=== PATIENT | male | born 2000 | race Caucasian/White ===

== ENCOUNTER 2018-03-02 12:16 | Emergency (ER) | payer MEDICAID ==
[~2018-03-02] VITALS: Ht 165.1 cm; Wt 62.1 kg
[2018-03-02 12:32] VITALS: BP 124/70; Ht 165.1 cm; Wt 62.1 kg
[2018-03-03 09:49] LABS: RAPID PLASMA REAGIN Non Reactive (Non Reactive)
== END 2018-03-02 16:08 | disposition home or self-care (01) ==
LOC: ED 12:16
PROVIDERS: Emergency Medicine
DX: J06.9 Acute upper respiratory infection, unspecified (principal); N34.2 Other urethritis
CPT/HCPCS: 87491; 87591; J0696; Q0092